=== PATIENT | male | born 1970 | race Caucasian/White ===

== ENCOUNTER 2017-02-16 08:09 | Day surgery (SDC) | payer SELFPAY ==
[~2017-02-16] VITALS: Ht 175.3 cm; Wt 89.8 kg
[~2017-02-16 08:09] MED LIST: OMEPRAZOLE20 M4 PO; PROPRANOLOL HCL40 M2 PO; TOPAMAX25 M3 PO
== END 2017-02-16 17:10 ==
LOC: SHSB 08:09 → SRG 08:09 → PACU 13:03 → SHSB 13:55 → SRG 17:10
PROC: 0WUF0JZ Supplement Abdominal Wall with Synthetic Substitute, Open Approach (ICD-10-PCS; principal; 2017-02-16)
DX: K42.9 Umbilical hernia without obstruction or gangrene (principal); I10 Essential (primary) hypertension; F41.9 Anxiety disorder, unspecified; F32.9 Major depressive disorder, single episode, unspecified; F17.210 Nicotine dependence, cigarettes, uncomplicated; Z79.899 Other long term (current) drug therapy; Z98.890 Other specified postprocedural states
CPT/HCPCS: C1781; J0690; J1170; J2405